=== PATIENT | male | born 1995 | race Two or more races ===

== ENCOUNTER 2018-07-24 10:33 | Emergency (ER) | payer OTHER ==
[~2018-07-24] VITALS: Ht 172.7 cm; Wt 72.7 kg
[2018-07-24] MEDS ORDERED: NAPR-885 PO (10:39)
--- NOTE | 2018-07-24 12:25 | REP ---
Clinical: Bilateral testicular pain after heavy lifting. Technique: Real time juarez scale and color Doppler evaluation using linear high frequency and curved array transducers. Findings: The bilateral testicles and epididymi are normal in contour, size, echogenicity, and vascularity without evidence for mass lesion, infectious/inflammatory process, or torsion. Incidental small bilateral hydroceles are noted. Mild left-sided varicoceles measure up to 3 mm on Valsalva. Right testicle measures 5.2 x 3.1 x 4.2 cm. Left testicle measures 5.0 x 3.1 x 3.5 cm. Impression: 1. Small incidental hydroceles along with mild left varicoceles. 2. Otherwise normal scrotal ultrasound. Electronically Signed by Carl Zhu MD 07/24/2018 12:16 P
[2018-07-24 12:44] VITALS: BP 130/66
== END 2018-07-24 12:45 | disposition home or self-care (01) ==
LOC: M ED 10:33
DX: N43.3 Hydrocele, unspecified (principal); Z88.0 Allergy status to penicillin

== ENCOUNTER 2018-07-27 13:18 | Emergency (ER) | payer OTHER ==
[~2018-07-27] VITALS: Ht 172.7 cm; Wt 72.7 kg
[~2018-07-27 13:18] MED LIST: NAPR-885 PO
--- NOTE | 2018-07-27 15:09 | REP ---
SCROTAL ULTRASOUND: Real-time sonographic evaluation of the scrotum and contents performed and compared to a prior study of 07/24/2018. Once again testicles are normal in size and echotexture, right testicle measuring 5.8 x 3.7 x 4.1 cm and left testicle 5.1 x 3.1 x 3.6 cm. There is no testicular mass or torsion, resistive index right testicle 0.55 and left testicle 0.56 with duplex Doppler evaluation. There are very small hydroceles bilaterally. Mild left side varicocele is present with mildly prominent venous structures slightly increasing in diameter Valsalva maneuver. A cyst in the head of the right epididymis measures 4 mm maximally and a cyst in the head of the left epididymis measures 3 mm maximally. IMPRESSION: No testicular mass or torsion. Small left varicocele. Electronically Signed by Jorge Luis Bautista MD 07/28/2018 10:21 A
[2018-07-27 17:27] LABS: APPEARANCE, URINE CLEAR (CLEAR); BACTERIA, URINE AUTO NEGATIVE (NEGATIVE); BILIRUBIN, URINE AUTO NEGATIVE (NEGATIVE); BLOOD, URINE BLOOD 1+ (NEGATIVE); COLOR, URINE YELLOW (YELLOW); GLUCOSE, URINE (UA) AUTO NEGATIVE (NEGATIVE); KETONE, URINE AUTO NEGATIVE (NEGATIVE); LEUKOCYTE ESTERASE, URINE AUTO NEGATIVE (NEGATIVE); MUCUS, URINE SMALL (NEGATIVE); NITRITE, URINE AUTO NEGATIVE (NEGATIVE); PROTEIN, URINE AUTO NEGATIVE (NEGATIVE); RBC, URINE AUTO 9 /HPF (0-3); SPECIFIC GRAVITY URINE AUTO 1.021 (1.002-1.035); SQUAMOUS EPITHELIAL CELL UR AU 0 /HPF (0-6); UROBILINOGEN, URINE AUTO 0.2 mg/dL (0.0-2.0); WBC, URINE AUTO 0 /HPF (0-3)
--- NOTE | 2018-07-27 18:40 | REP ---
CT abdomen and pelvis without contrast: History: Hematuria. No comparison study. 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 The lung bases are clear. The liver and the spleen are normal in size homogeneous in texture. No adrenal lesion is seen. Pancreas is unremarkable. The gallbladder is normal in appearance. There is no evidence of hydronephrosis or intrarenal calculus on either side. No ureteral stone or bladder calculus is visible. There are phleboliths in the pelvis. Prostate and seminal vesicles are unremarkable. A normal appendix is seen in the right lower quadrant. Small and large intestinal bowel loops are unremarkable. Impression: Negative CT abdomen and pelvis. No urinary tract calculus seen. Normal appendix noted. Electronically Signed by Dave Zamorano MD 07/27/2018 06:45 P
[2018-07-27 19:33] LABS: HEMATOCRIT 45.9 % (42.0-52.0); MEAN CORPUSCULAR HGB CONC 30.5 g/dl (32.0-36.5); MEAN CORPUSCULAR VOLUME 81.8 fl (80.0-96.0); PLATELET COUNT, AUTOMATED 276 10^3/uL (150-450); RED BLOOD COUNT 5.61 10^6/uL (4.30-6.10); WHITE BLOOD COUNT 7.3 10^3/uL (4.0-10.0)
[2018-07-27 19:57] LABS: BLOOD UREA NITROGEN 11 MG/DL (7-18); CALCIUM LEVEL 8.8 MG/DL (8.5-10.1); CARBON DIOXIDE LEVEL 29 MEQ/L (21-32); CHLORIDE LEVEL 104 MEQ/L (98-107); CREATININE FOR GFR 0.97 MG/DL (0.70-1.30); GLOMERULAR FILTRATION RATE > 60.0 (>60); GLUCOSE, FASTING 86 MG/DL (70-100); POTASSIUM SERUM 4.1 MEQ/L (3.5-5.1); SODIUM LEVEL 140 MEQ/L (136-145)
[2018-07-27 20:02] LABS: CHLAMYDIA DNA AMPLIFICATION NEGATIVE (NEGATIVE); GC DNA AMPLIFICATION NEGATIVE (NEGATIVE)
[2018-07-27 20:31] VITALS: BP 133/70
--- NOTE | 2018-07-28 16:58 | ED PDOC ---
Post-Departure Follow-Up ft [facility] fp faxed formal report of scrotal us for fu Ximena Gaines MD Jul 28, 2018 16:58
== END 2018-07-27 20:41 | disposition home or self-care (01) ==
LOC: M ED 13:18
DX: I86.1 Scrotal varices (principal); N50.89 Other specified disorders of the male genital organs; N43.3 Hydrocele, unspecified; Z79.1 Long term (current) use of non-steroidal anti-inflammatories (NSAID); Z88.0 Allergy status to penicillin

== ENCOUNTER 2018-08-20 12:19 | Emergency (ER) | payer OTHER ==
[~2018-08-20] VITALS: Ht 172.7 cm; Wt 75.0 kg
[2018-08-20 13:27] LABS: BASO # 0.1 10^3/uL (0.0-0.2); EOS # 0.3 10^3/uL (0.0-0.50); EOS % 3.7 % (0.0-3.0); HEMATOCRIT 45.1 % (42.0-52.0); HEMOGLOBIN 14.1 g/dl (13.5-17.5); LYMPH # 1.8 10^3/uL (1.5-6.5); LYMPH % 25.5 % (24.0-44.0); MEAN CORPUSCULAR HEMOGLOBIN 25.3 pg (27.0-33.0); MEAN CORPUSCULAR HGB CONC 31.3 g/dl (32.0-36.5); MONO # 0.4 10^3/uL (0.0-0.8); NEUTROPHILS # 4.5 10^3/uL (1.8-7.7); NEUTROPHILS % 63.5 % (36.0-66.0); PLATELET COUNT, AUTOMATED 333 10^3/uL (150-450); RED BLOOD COUNT 5.57 10^6/uL (4.30-6.10)
--- NOTE | 2018-08-20 13:37 | REP ---
Chest x-ray: Two views. History: Chest pain . Comparison study: No comparison study . Findings: The lungs are well inflated and free of infiltrate. The pleural angles are sharp. The heart size is normal. Pulmonary vasculature is not increased. No significant bony abnormality is seen. Impression: Negative chest x-ray. Electronically Signed by Dave Zamorano MD 08/20/2018 01:29 P
[2018-08-20 14:24] LABS: BLOOD UREA NITROGEN 14 MG/DL (7-18); CALCIUM LEVEL 9.3 MG/DL (8.5-10.1); CARBON DIOXIDE LEVEL 30 MEQ/L (21-32); CHLORIDE LEVEL 103 MEQ/L (98-107); CPK CREATINE PHOSPHOKINASE 297 U/L (39-308); CREATININE FOR GFR 1.08 MG/DL (0.70-1.30); GLOMERULAR FILTRATION RATE > 60.0 (>60); GLUCOSE, FASTING 95 MG/DL (70-100); MAGNESIUM LEVEL 2.1 MG/DL (1.8-2.4); MB/CK RELATIVE INDEX 0.51 (< OR =4); POTASSIUM SERUM 4.3 MEQ/L (3.5-5.1); SODIUM LEVEL 139 MEQ/L (136-145); THYROID STIMULATING HORMONE 0.979 uIU/ML (0.358-3.740); TROPONIN I < 0.02 NG/ML (< 0.10)
[2018-08-20] MEDS ORDERED: ISOVUE-370 76% 125ML VIAL (Q9967 PER ML) As Ordered ONE (14:24)
--- NOTE | 2018-08-20 15:08 | ECGEPIP ---
Stationary ECG Study [facility] - ED Test Date: 2018-08-20 Pat Name: LU ROE Department: Room: - Gender: M Gastroenterologist: JSalo : 1995 Requested By: RONNIE BOWMAN Order Number: [id number] Reading MD: Telma Burgess Measurements Intervals [place] Rate: 51 P: 60 AK: 126 QRS: 61 QRSD: 102 T: 61 QT: 372 QTc: 344 Interpretive Statements SINUS BRADYCARDIA NO PRIOR FOR COMPARISON Electronically Signed On 08-20-2018 15:08:35 EDT by Telma Burgess
--- NOTE | 2018-08-20 15:27 | REP ---
Clinical: Acute chest pain and elevated d-dimer levels. Technique: Axial contrast enhanced images from the thoracic inlet to the upper abdomen using 100 ml Isovue 370 intravenous contrast material with coronal and sagittal re-formations. Findings: Satisfactory enhancement of the pulmonary vasculature is achieved and no filling defects are identified to suggest pulmonary embolus. Thoracic aorta is normal caliber without aneurysm or dissection. Heart and pericardium are normal. Bilateral lung adames are well aerated and clear without acute pulmonary parenchymal consolidation or atelectasis. No nodule or mass lesion. No pleural effusion/reaction. No pneumothorax. No adenopathy. Impression: No evidence for pulmonary embolus. No acute pleuroparenchymal or mediastinal process. Electronically Signed by Carl Zhu MD 08/20/2018 03:18 P
[2018-08-20 16:18] VITALS: BP 130/65
== END 2018-08-20 16:20 | disposition home or self-care (01) ==
LOC: M ED 12:19
DX: R07.89 Other chest pain (principal); R00.1 Bradycardia, unspecified; Z79.899 Other long term (current) drug therapy; Z88.0 Allergy status to penicillin
CPT/HCPCS: 71046; 71275; 80048; 82550; 82553; 83735; 84443; 84484; 85025; 85379; 93005; 99284; Q9967

== ENCOUNTER 2019-01-20 10:45 | Emergency (ER) | payer OTHER ==
[~2019-01-20] VITALS: Ht 172.7 cm; Wt 75.0 kg
[2019-01-20] MEDS ORDERED: LEVO500T3 PO (10:53)
[2019-01-20 12:01] LABS: BASO # 0.1 10^3/uL (0.0-0.2); BASO % 1.1 % (0.0-1.0); EOS # 0.1 10^3/uL (0.0-0.50); EOS % 2.5 % (0.0-3.0); HEMATOCRIT 45.1 % (42.0-52.0); HEMOGLOBIN 14.3 g/dl (13.5-17.5); LYMPH # 1.8 10^3/uL (1.5-6.5); LYMPH % 31.2 % (24.0-44.0); MEAN CORPUSCULAR HEMOGLOBIN 26.1 pg (27.0-33.0); MEAN CORPUSCULAR HGB CONC 31.7 g/dl (32.0-36.5); MEAN CORPUSCULAR VOLUME 82.3 fl (80.0-96.0); MONO # 0.3 10^3/uL (0.0-0.8); MONO % 5.8 % (0.0-5.0); NEUTROPHILS # 3.4 10^3/uL (1.8-7.7); NEUTROPHILS % 59.2 % (36.0-66.0); PLATELET COUNT, AUTOMATED 319 10^3/uL (150-450); RED BLOOD COUNT 5.48 10^6/uL (4.30-6.10); WHITE BLOOD COUNT 5.7 10^3/uL (4.0-10.0)
[2019-01-20 12:30] LABS: ALBUMIN 4.2 GM/DL (3.2-5.2); ALT/SGPT 19 U/L (12-78); BILIRUBIN,DIRECT 0.1 MG/DL (0.0-0.2); BILIRUBIN,TOTAL 0.6 MG/DL (0.2-1.0); BLOOD UREA NITROGEN 8 MG/DL (7-18); CALCIUM LEVEL 9.5 MG/DL (8.5-10.1); CARBON DIOXIDE LEVEL 32 MEQ/L (21-32); CHLORIDE LEVEL 104 MEQ/L (98-107); CREATININE FOR GFR 1.15 MG/DL (0.70-1.30); GLOMERULAR FILTRATION RATE > 60.0 (>60); GLUCOSE, FASTING 80 MG/DL (70-100); SODIUM LEVEL 139 MEQ/L (136-145); TOTAL PROTEIN 7.8 GM/DL (6.4-8.2)
[2019-01-20 13:00] VITALS: BP 129/69
== END 2019-01-20 14:00 | disposition home or self-care (01) ==
LOC: M ED 10:45
DX: Z87.19 Personal history of other diseases of the digestive system (principal); N39.0 Urinary tract infection, site not specified; Z79.899 Other long term (current) drug therapy; Z88.0 Allergy status to penicillin

== ENCOUNTER 2019-03-09 08:06 | Emergency (ER) | payer OTHER ==
[~2019-03-09] VITALS: Ht 172.7 cm; Wt 82.2 kg
[~2019-03-09 08:06] MED LIST changes: +LEVO500T3 PO
[2019-03-09 09:06] LABS: HEMOGLOBIN 16.1 g/dl (13.5-17.5); MEAN CORPUSCULAR HEMOGLOBIN 26.5 pg (27.0-33.0); MEAN CORPUSCULAR HGB CONC 32.2 g/dl (32.0-36.5); MEAN CORPUSCULAR VOLUME 82.2 fl (80.0-96.0); PLATELET COUNT, AUTOMATED 284 10^3/uL (150-450); RED BLOOD COUNT 6.08 10^6/uL (4.30-6.10); WHITE BLOOD COUNT 4.6 10^3/uL (4.0-10.0)
[2019-03-09 09:34] LABS: ACETAMINOPHEN LEVEL < 2.0 UG/ML (10.0-30.0); ALBUMIN 4.4 GM/DL (3.2-5.2); ALT/SGPT 20 U/L (12-78); BILIRUBIN,DIRECT 0.3 MG/DL (0.0-0.2); BILIRUBIN,TOTAL 1.5 MG/DL (0.2-1.0); BLOOD UREA NITROGEN 12 MG/DL (7-18); CALCIUM LEVEL 9.4 MG/DL (8.5-10.1); CARBON DIOXIDE LEVEL 27 MEQ/L (21-32); CHLORIDE LEVEL 103 MEQ/L (98-107); CREATININE FOR GFR 1.33 MG/DL (0.70-1.30); ETHYL ALCOHOL (ETHANOL) < 0.003 % (0.000-0.010); GLOMERULAR FILTRATION RATE > 60.0 (>60); GLUCOSE, FASTING 101 MG/DL (70-100); POTASSIUM SERUM 3.6 MEQ/L (3.5-5.1); SALICYLATE LEVEL < 1.7 MG/DL (5.0-30.0); SODIUM LEVEL 139 MEQ/L (136-145); TOTAL PROTEIN 8.1 GM/DL (6.4-8.2)
[2019-03-09 10:13] LABS: AMPHETAMINES LEVEL URINE NEGATIVE (NEGATIVE); BARBITURATES URINE NEGATIVE (NEGATIVE); BENZODIAZEPINES URINE NEGATIVE (NEGATIVE); CANNABINOIDS URINE NEGATIVE (NEGATIVE); COCAINE METABOLITE URINE NEGATIVE (NEGATIVE); METHADONE URINE NEGATIVE (NEGATIVE); OPIATES URINE NEGATIVE (NEGATIVE); PHENCYCLIDINE URINE NEGATIVE (NEGATIVE)
--- NOTE | 2019-03-09 12:34 | ED PDOC ---
Provider Note Phone consultation undertaken with this provider, PSA worker relays for patient had contingent suicidal thoughts that if he was returned to the [place]acks to become suicidal. He had been denying suicidality since his presentation and observation, the patient had been brought in because of what appears to be contention suicidality in order to avoid being returned to the barracks as he found this unpalatable. Observed patient for several more hours, where he then redacted his suicidality stating that he felt that he would be able to tolerate the barracks. He had been denying any suicidal ideation and his original presentation appeared to be malingering in my clinical judgment from the information given to me on the phone consultation. At the time of discharge he did not meet involuntary criteria as he was denied any suicidal thoughts and had not demonstrated significant impairment by mental health condition as well as having no homicidal thoughts. He declined voluntary admission and thus must be discharged in good tomas. JESSICA SAM DO Mar 09, 2019 12:34
[2019-03-09 13:54] VITALS: BP 154/75
== END 2019-03-09 13:56 | disposition home or self-care (01) ==
LOC: M ED 08:06
DX: F32.9 Major depressive disorder, single episode, unspecified (principal); F41.9 Anxiety disorder, unspecified; Z88.0 Allergy status to penicillin
CPT/HCPCS: 36415; 80048; 80076; 80307; 84443; 85027; 99284; G0480